=== PATIENT | female | born 1990 | race Two or more races ===

== ENCOUNTER 2025-04-06 13:06 | Emergency (ER) | payer MEDICAID ==
[~2025-04-06] VITALS: Ht 172.7 cm; Wt 79.4 kg
[2025-04-06 13:14] VITALS: TEMP 98.3
[2025-04-06] MEDS ORDERED: ACETAMINOPHEN ES 500 MG TABLET ONE (13:26)
[2025-04-06] MEDS ORDERED: IBUPROFEN 400 MG TABLET ONE (13:27)
[2025-04-06] MEDS: ACETAMINOPHEN ES 500 MG TABLET PO ONE (13:39)
[2025-04-06] MEDS: IBUPROFEN 400 MG TABLET PO ONE (13:39)
[2025-04-06] MEDS ORDERED: CYCL5TAB PO (15:16)
[2025-04-06] MEDS ORDERED: IBUP-1490 PO (15:16)
[2025-04-06] MEDS ORDERED: LIDO30AD10 TP (15:16)
[2025-04-06 15:31] VITALS: BP 128/78; O2SAT 99
== END 2025-04-06 15:31 | disposition home or self-care (01) ==
LOC: ER 13:14
DX: M54.50 Low back pain, unspecified (principal); M25.512 Pain in left shoulder; F41.9 Anxiety disorder, unspecified; M51.372 Other intervertebral disc degeneration, lumbosacral region with discogenic back pain and lower extremity pain; Z91.013 Allergy to seafood; Z79.899 Other long term (current) drug therapy; V43.52XA Car driver injured in collision with other type car in traffic accident, initial encounter; Y93.89 Activity, other specified; Y92.415 Exit ramp or entrance ramp of street or highway as the place of occurrence of the external cause; Y99.8 Other external cause status
CPT/HCPCS: 73030-TC; 73502